=== PATIENT | male | born 1955 | race Caucasian/White ===

== ENCOUNTER → 2016-10-24 | Outpatient (CLI) | payer BC ==
[2016-10-24 13:32] LABS: BUN/Creatinine Ratio 12.2; Calcium 9.2 mg/dL (8.5-10.1); Potassium 4.5 mmol/L (3.5-5.1)
== END | disposition home or self-care (01) ==
LOC: LAB 09:36
PROVIDERS: ATTEND Internal Medicine Cardiovascular Disease
DX: I10 Essential (primary) hypertension (principal); E11.9 Type 2 diabetes mellitus without complications
CPT/HCPCS: 36415; 80048; 83036

== ENCOUNTER → 2017-04-18 | Outpatient (CLI) | payer BC ==
[2017-04-18 17:04] LABS: Basophils # (auto) 0 uL; Basophils % (auto) 0.5 % (0.0-2.0); CONDITION Y; Eosinophils # (auto) 0.1 uL; Eosinophils % (auto) 1.2 % (0.0-7.0); Hematocrit 41.4 % (41.0-53.0); Hemoglobin 13.9 g/dL (13.5-17.5); Lymphocytes # (auto) 2.1 uL; Lymphocytes % (auto) 26.5 % (10.0-50.0); Mean Corpuscular Hemoglobin 30.7 pg (28.0-32.0); Mean Corpuscular Hgb Conc. 33.7 g/dL (32.0-36.0); Mean Corpuscular Volume 91.3 fL (80.0-100.0); Mean Platelet Volume 8.9 fL (7.4-10.4); Monocytes # (auto) 0.5 uL; Neutrophils # (auto) 5.1 uL; Neutrophils % (auto) 65.8 % (37.0-80.0); Platelet Count (auto) 210 10^3/uL (140-450); Red Cell Distribution Width 14.6 % (11.6-16.0); White Blood Cell 7.8 10^3/uL (4.4-10.8)
[2017-04-18 17:11] LABS: Urine Bilirubin Negative (Negative); Urine Blood Negative /uL (Negative); Urine Color Yellow (Yellow); Urine Ketone Negative (Negative); Urine Nitrite Negative (Negative); Urine Urobilinogen Normal (Negative)
[2017-04-18 17:19] LABS: Urine Glucose 1+ mg/dL (Normal)
[2017-04-18 17:27] LABS: Temperature: 23.1 C (20.0-25.0)
[2017-04-18 17:34] LABS: Albumin 4.1 g/dL (3.4-5.0); BUN/Creatinine Ratio 15.6; Bilirubin, Direct 0.2 mg/dL (0-0.2); Bilirubin, Total 0.7 mg/dL (0.2-1.0); Calcium 9.2 mg/dL (8.5-10.1); Magnesium 2.2 mg/dL (1.6-2.6); Potassium 4.6 mmol/L (3.5-5.1); Total Protein 8.5 g/dL (6.4-8.2); Uric Acid 4.6 mg/dL (3.5-7.2)
== END | disposition home or self-care (01) ==
LOC: LAB 11:19
PROVIDERS: ATTEND Internal Medicine Cardiovascular Disease
DX: I10 Essential (primary) hypertension (principal); E78.00 Pure hypercholesterolemia, unspecified; K74.1 Hepatic sclerosis; E11.9 Type 2 diabetes mellitus without complications; R97.20 Elevated prostate specific antigen [PSA]; E03.9 Hypothyroidism, unspecified; R53.81 Other malaise; D64.9 Anemia, unspecified; E55.9 Vitamin D deficiency, unspecified; N39.0 Urinary tract infection, site not specified; M10.9 Gout, unspecified; E61.1 Iron deficiency
CPT/HCPCS: 36415; 80048; 80061; 80076; 81003; 82043; 82306; 82746; 83036; 83735; 84153; 84403; 84439; 84443; 84550; 85025

== ENCOUNTER → 2017-05-23 | Outpatient (CLI) | payer BC ==
[~2017-05-23] VITALS: Ht 30.5 cm; Wt 0.5 kg
[~2017-05-23] MED LIST: ADENOSINE 90 MG in GIVE UN-DILUTED 0 ML IV ONE; ADENOSINE 90 MG/30 ML INJ IV ONE
== END | disposition home or self-care (01) ==
LOC: Rad HDHVI 08:54
PROVIDERS: ATTEND Internal Medicine Cardiovascular Disease
DX: I10 Essential (primary) hypertension (principal); I25.2 Old myocardial infarction; E11.9 Type 2 diabetes mellitus without complications; E78.00 Pure hypercholesterolemia, unspecified; F17.210 Nicotine dependence, cigarettes, uncomplicated
CPT/HCPCS: 78452; 93005; 93306; 96374; 96375; A9500; J0153

== ENCOUNTER → 2017-06-12 | Outpatient (CLI) | payer BC ==
[2017-06-12 12:43] LABS: BUN/Creatinine Ratio 10.8; Calcium 8.8 mg/dL (8.5-10.1); Potassium 4.6 mmol/L (3.5-5.1)
== END | disposition home or self-care (01) ==
LOC: LAB 09:30
PROVIDERS: ATTEND Internal Medicine Cardiovascular Disease
DX: I10 Essential (primary) hypertension (principal)
CPT/HCPCS: 36415; 80048

== ENCOUNTER → 2017-06-25 | Outpatient (CLI) | payer BC ==
[~2017-06-25] MED LIST changes: -ADENOSINE 90 MG in GIVE UN-DILUTED 0 ML IV ONE; -ADENOSINE 90 MG/30 ML INJ IV ONE; +ASPI81TA27 PO; +ATEN-60 PO; +ATOR20TA PO; +CLOP75TA28 PO; +LISI-646 PO; +METF-370 PO; +PIO30T PO; +SITA100T7 PO
[2017-06-25 11:05] VITALS: BP 141/79
[2017-06-25 13:40] LABS: INR 1.1 (0.9-1.15); Partial Thromboplastin Time 30.4 sec (22.64-33.71)
[2017-06-25 13:44] LABS: BUN/Creatinine Ratio 14.8; Calcium 8.8 mg/dL (8.5-10.1); Potassium 3.9 mmol/L (3.5-5.1)
[2017-06-25 18:37] LABS: Basophils # (auto) 0.1 uL; Basophils % (auto) 1.1 % (0.0-2.0); Eosinophils # (auto) 0.1 uL; Eosinophils % (auto) 1.6 % (0.0-7.0); Hematocrit 40.7 % (41.0-53.0); Hemoglobin 13.7 g/dL (13.5-17.5); Lymphocytes # (auto) 1.4 uL; Mean Corpuscular Hemoglobin 31.1 pg (28.0-32.0); Mean Corpuscular Hgb Conc. 33.8 g/dL (32.0-36.0); Mean Corpuscular Volume 92.2 fL (80.0-100.0); Mean Platelet Volume 8.4 fL (6.9-10.8); Monocytes # (auto) 0.4 uL; Neutrophils % (auto) 60.3 % (37.0-80.0); Nucleated Red Blood Cells % 0.1 %; Platelet Count (auto) 144 10^3/uL (140-450); Red Cell Distribution Width 14.9 % (11.8-14.3); White Blood Cell 4.9 10^3/uL (4.4-10.8)
[2017-06-26 10:00] VITALS: BP 153/82
== END | disposition home or self-care (01) ==
LOC: Rad HDHVI 10:09
PROVIDERS: ATTEND Internal Medicine Cardiovascular Disease
DX: Z01.818 Encounter for other preprocedural examination (principal); I10 Essential (primary) hypertension; D64.9 Anemia, unspecified; R79.1 Abnormal coagulation profile
CPT/HCPCS: 36415; 71020; 80048; 85025; 85610; 85730; 93005; G0463

== ENCOUNTER 2017-06-27 11:00 | Day surgery (SDC) | payer BC ==
[~2017-06-27] VITALS: Ht 167.6 cm; Wt 105.7 kg
[2017-06-27] MEDS ORDERED: LIDOCAINE 2%HCL (LOCAL ANESTH.) INJ 20ML MDV ONE (11:16)
[2017-06-27] MEDS ORDERED: IOHEXOL 350 MG/ML 100ML IJ ONE (11:16)
[2017-06-27] MEDS ORDERED: fentaNYL CITRATE 100 MCG/2 ML VL ONE (11:51)
[2017-06-27] MEDS ORDERED: MIDAZOLAM HCL 1MG/1ML-2 ML VIAL ONE (11:51)
[2017-06-27] MEDS ORDERED: ANGIOMAX 250 MG VIAL IV ONE (11:52)
[2017-06-27] MEDS ORDERED: SODIUM CHL 0.9% 0 ML ONE (11:52)
== END 2017-06-27 15:15 | disposition home or self-care (01) ==
LOC: CATH 11:00
PROVIDERS: ATTEND Internal Medicine Cardiovascular Disease
DX: R07.9 Chest pain, unspecified (principal); I10 Essential (primary) hypertension; E78.00 Pure hypercholesterolemia, unspecified; E11.9 Type 2 diabetes mellitus without complications; I71.9 Aortic aneurysm of unspecified site, without rupture; E78.5 Hyperlipidemia, unspecified; E66.9 Obesity, unspecified; G47.30 Sleep apnea, unspecified
CPT/HCPCS: 93458; C1760; C1769; C1894; J1644; J2250; J3010; J7030; Q9967; 99152; 99153

== ENCOUNTER → 2018-04-30 | Outpatient (CLI) | payer BC ==
[~2018-04-30] MED LIST changes: -CLOP75TA28 PO
[2018-04-30 12:52] LABS: Basophils # (auto) 0 uL; Basophils % (auto) 0.5 % (0.0-2.0); Eosinophils # (auto) 0 uL; Eosinophils % (auto) 0.7 % (0.0-7.0); Hematocrit 40.7 % (41.0-53.0); Lymphocytes # (auto) 1.4 uL; Mean Corpuscular Hemoglobin 32.6 pg (28.0-32.0); Mean Corpuscular Hgb Conc. 34.3 g/dL (32.0-36.0); Mean Corpuscular Volume 95.2 fL (80.0-100.0); Monocytes # (auto) 0.4 uL; Monocytes % (auto) 6.5 % (0.0-12.0); Neutrophils # (auto) 3.9 uL; Neutrophils % (auto) 67.3 % (37.0-80.0); Nucleated Red Blood Cells % 0.2 %; Platelet Count (auto) 140 10^3/uL (140-450); Red Blood Cells 4.28 10^6/uL (4.5-5.90); Red Cell Distribution Width 14.7 % (11.8-14.3); White Blood Cell 5.7 10^3/uL (4.4-10.8)
[2018-04-30 13:04] LABS: Albumin 3.8 g/dL (3.4-5.0); BUN/Creatinine Ratio 11.8; Bilirubin, Direct 0.2 mg/dL (0-0.2); Bilirubin, Total 0.8 mg/dL (0.2-1.0); Potassium 4.2 mmol/L (3.5-5.1); Total Protein 8.1 g/dL (6.4-8.2)
== END | disposition home or self-care (01) ==
LOC: LAB 08:55
PROVIDERS: ATTEND Internal Medicine Cardiovascular Disease
DX: Z00.01 Encounter for general adult medical examination with abnormal findings (principal); C61 Malignant neoplasm of prostate; N39.0 Urinary tract infection, site not specified; E11.9 Type 2 diabetes mellitus without complications; E29.1 Testicular hypofunction; E03.9 Hypothyroidism, unspecified; E55.9 Vitamin D deficiency, unspecified; D51.9 Vitamin B12 deficiency anemia, unspecified; K74.1 Hepatic sclerosis
CPT/HCPCS: 36415; 80048; 80061; 80076; 82306; 83036; 84153; 84403; 84443; 85025

== ENCOUNTER → 2018-07-21 | Outpatient (CLI) | payer BC ==
[2018-07-21 13:43] LABS: Albumin 3.6 g/dL (3.4-5.0); BUN/Creatinine Ratio 15.4; Bilirubin, Total 0.7 mg/dL (0.2-1.0); Calcium 8.7 mg/dL (8.5-10.1); Total Protein 7.9 g/dL (6.4-8.2)
== END | disposition home or self-care (01) ==
LOC: LAB 09:16
PROVIDERS: ATTEND Internal Medicine
DX: E78.5 Hyperlipidemia, unspecified (principal); I10 Essential (primary) hypertension; E11.9 Type 2 diabetes mellitus without complications
CPT/HCPCS: 36415; 80053; 80061; 83036

== ENCOUNTER → 2018-10-24 | Outpatient (CLI) | payer BC ==
[2018-10-24 12:18] LABS: Potassium 4.2 mmol/L (3.5-5.1)
[2018-10-24 12:27] LABS: Albumin 3.6 g/dL (3.4-5.0); BUN/Creatinine Ratio 12.9; Bilirubin, Total 0.6 mg/dL (0.2-1.0); Calcium 8.8 mg/dL (8.5-10.1)
== END | disposition home or self-care (01) ==
LOC: CHF HDHVI 07:59
PROVIDERS: ATTEND Internal Medicine Cardiovascular Disease
DX: E78.5 Hyperlipidemia, unspecified (principal); I10 Essential (primary) hypertension; E11.9 Type 2 diabetes mellitus without complications
CPT/HCPCS: 36415; 80053; 80061; 83036

== ENCOUNTER → 2019-03-17 | Outpatient (CLI) | payer BC ==
[2019-03-17 12:41] LABS: Albumin 3.9 g/dL (3.4-5.0)
[2019-03-17 12:44] LABS: Bilirubin, Direct 0.2 mg/dL (0-0.2); Bilirubin, Total 0.7 mg/dL (0.2-1.0); Total Protein 7.5 g/dL (6.4-8.2)
== END | disposition home or self-care (01) ==
LOC: LAB 09:41
PROVIDERS: ATTEND Internal Medicine
DX: E78.5 Hyperlipidemia, unspecified (principal); R74.8 Abnormal levels of other serum enzymes; I10 Essential (primary) hypertension
CPT/HCPCS: 36415; 80061; 80076; 82550

== ENCOUNTER → 2019-03-27 | Outpatient (CLI) | payer BC ==
[~2019-03-27] MED LIST changes: +ASPI-404 PO; -ASPI81TA27 PO
== END | disposition home or self-care (01) ==
LOC: Rad HDHVI 08:57
PROVIDERS: ATTEND Internal Medicine
DX: M19.011 Primary osteoarthritis, right shoulder (principal); M19.012 Primary osteoarthritis, left shoulder; M16.0 Bilateral primary osteoarthritis of hip
CPT/HCPCS: 73030

== ENCOUNTER → 2019-04-16 | Outpatient (CLI) | payer BC ==
[2019-04-16 12:42] LABS: Potassium 4.2 mmol/L (3.5-5.1)
[2019-04-16 12:45] LABS: BUN/Creatinine Ratio 17.2
[2019-04-16 12:47] LABS: Basophils # (auto) 0 uL; Basophils % (auto) 0.8 % (0.0-2.0); Eosinophils # (auto) 0.1 uL; Eosinophils % (auto) 1.9 % (0.0-7.0); Hematocrit 38.2 % (41.0-53.0); Hemoglobin 12.9 g/dL (13.5-17.5); Lymphocytes # (auto) 1.4 uL; Lymphocytes % (auto) 27.3 % (10.0-50.0); Mean Corpuscular Hgb Conc. 33.8 g/dL (32.0-36.0); Mean Corpuscular Volume 94.6 fL (80.0-100.0); Monocytes # (auto) 0.4 uL; Monocytes % (auto) 6.9 % (0.0-12.0); Neutrophils # (auto) 3.2 uL; Neutrophils % (auto) 63.1 % (37.0-80.0); Nucleated Red Blood Cells % 0.1 %; Platelet Count (auto) 130 10^3/uL (140-450); Red Blood Cells 4.03 10^6/uL (4.5-5.90); Red Cell Distribution Width 15.2 % (11.8-14.3); White Blood Cell 5.1 10^3/uL (4.4-10.8)
== END | disposition home or self-care (01) ==
LOC: LAB 08:11
PROVIDERS: ATTEND Internal Medicine
DX: Z00.00 Encounter for general adult medical examination without abnormal findings (principal); R82.79 Other abnormal findings on microbiological examination of urine; E78.00 Pure hypercholesterolemia, unspecified; D51.9 Vitamin B12 deficiency anemia, unspecified; R70.0 Elevated erythrocyte sedimentation rate; C61 Malignant neoplasm of prostate; K90.9 Intestinal malabsorption, unspecified; I10 Essential (primary) hypertension
CPT/HCPCS: 36415; 80048; 80061; 82306; 82607; 83036; 84154; 84443; 85025; 85652

== ENCOUNTER → 2019-08-10 | Outpatient (CLI) | payer BC ==
[2019-08-10 11:59] LABS: Potassium 4.3 mmol/L (3.5-5.1)
[2019-08-10 12:16] LABS: Albumin 3.7 g/dL (3.4-5.0); BUN/Creatinine Ratio 15.7; Bilirubin, Total 0.5 mg/dL (0.2-1.0); Calcium 8.8 mg/dL (8.5-10.1); Total Protein 7.7 g/dL (6.4-8.2)
== END | disposition home or self-care (01) ==
LOC: LAB 08:16
PROVIDERS: ATTEND Internal Medicine
DX: E78.5 Hyperlipidemia, unspecified (principal); E11.9 Type 2 diabetes mellitus without complications; I10 Essential (primary) hypertension
CPT/HCPCS: 36415; 80053; 80061; 83036

== ENCOUNTER 2020-08-13 22:29 | Emergency (ER) | payer BC, MEDICAID ==
[~2020-08-13] VITALS: Ht 167.6 cm; Wt 117.9 kg
[~2020-08-13 22:29] MED LIST changes: -ASPI-404 PO; +ASPI-543 PO
[2020-08-13 23:05] VITALS: BP 152/65
[2020-08-14 00:18] LABS: Basophils # (auto) 0 10 ^3/uL (0-0.2); Basophils % (auto) 0.7 % (0.0-2.0); Eosinophils # (auto) 0 10 ^3/uL (0-0.8); Eosinophils % (auto) 0.3 % (0.0-7.0); Hematocrit 40.7 % (41.0-53.0); Hemoglobin 13.7 g/dL (13.5-17.5); Lymphocytes # (auto) 0.8 10 ^3/uL (0.4-5.4); Lymphocytes % (auto) 15.3 % (10.0-50.0); Mean Corpuscular Hemoglobin 31.6 pg (28.0-32.0); Mean Corpuscular Hgb Conc. 33.7 g/dL (32.0-36.0); Mean Corpuscular Volume 93.6 fL (80.0-100.0); Monocytes # (auto) 0.3 10 ^3/uL (0-1.3); Monocytes % (auto) 5.8 % (0.0-12.0); Neutrophils # (auto) 3.9 10 ^3/uL (1.6-8.6); Neutrophils % (auto) 77.9 % (37.0-80.0); Nucleated Red Blood Cells % 0.2 %; Platelet Count (auto) 120 10^3/uL (140-450); Red Blood Cells 4.35 10^6/uL (4.5-5.90); Red Cell Distribution Width 15.2 % (11.8-14.3); White Blood Cell 5.1 10^3/uL (4.4-10.8)
[2020-08-14 00:34] LABS: Albumin 3.5 g/dL (3.4-5.0); Calcium 8.4 mg/dL (8.5-10.1); Potassium 4.3 mmol/L (3.5-5.1)
[2020-08-14 00:35] LABS: INR 1.12 (0.9-1.15)
[2020-08-14 00:39] LABS: Bilirubin, Total 0.7 mg/dL (0.2-1.0)
[2020-08-14 02:33] LABS: CRP High Sensitivity 3.47 mg/dL (< 0.3)
== END 2020-08-14 14:40 | disposition home or self-care (01) ==
LOC: ER 22:30
DX: U07.1 COVID-19 (principal); R06.00 Dyspnea, unspecified; R53.83 Other fatigue; E11.9 Type 2 diabetes mellitus without complications; I10 Essential (primary) hypertension
CPT/HCPCS: 36415; 36600; 71046; 80053; 82728; 82805; 83605; 83615; 83735; 83880; 84484; 85025; 85379; 85610; 86141; 87426; 93005

== ENCOUNTER 2020-08-15 09:43 | Inpatient (IN) | payer MEDICAID ==
[~2020-08-15] VITALS: Ht 167.6 cm; Wt 122.5 kg
[2020-08-15 14:01] LABS: Basophils # (auto) 0 10 ^3/uL (0-0.2); Basophils % (auto) 0.2 % (0.0-2.0); Eosinophils # (auto) 0 10 ^3/uL (0-0.8); Hematocrit 39.7 % (41.0-53.0); Hemoglobin 13.2 g/dL (13.5-17.5); Lymphocytes # (auto) 0.6 10 ^3/uL (0.4-5.4); Lymphocytes % (auto) 12.1 % (10.0-50.0); Mean Corpuscular Hemoglobin 31.2 pg (28.0-32.0); Mean Corpuscular Hgb Conc. 33.3 g/dL (32.0-36.0); Mean Corpuscular Volume 93.7 fL (80.0-100.0); Monocytes # (auto) 0.2 10 ^3/uL (0-1.3); Neutrophils # (auto) 4.3 10 ^3/uL (1.6-8.6); Neutrophils % (auto) 83.7 % (37.0-80.0); Nucleated Red Blood Cells % 0.2 %; Red Blood Cells 4.23 10^6/uL (4.5-5.90); Red Cell Distribution Width 14.9 % (11.8-14.3); White Blood Cell 5.1 10^3/uL (4.4-10.8)
[2020-08-15 14:23] LABS: Calcium 7.7 mg/dL (8.5-10.1); Potassium 4.4 mmol/L (3.5-5.1)
[2020-08-15 14:31] LABS: BUN/Creatinine Ratio 16.7; Bilirubin, Total 0.9 mg/dL (0.2-1.0); CRP High Sensitivity 5.55 mg/dL (< 0.3); Total Protein 7.1 g/dL (6.4-8.2)
[2020-08-15 14:42] LABS: Platelet Count (auto) 95 10^3/uL (140-450)
[2020-08-15] MEDS ORDERED: ACETAMINOPHEN 500 MG TAB PO PRN (17:45)
[2020-08-15] MEDS ORDERED: NITROGLYCERIN 0.4 MG SL TAB SL PRN (17:45)
[2020-08-15] MEDS ORDERED: REMDESIVIR PER PHARMACY IV SCH (17:45)
[2020-08-15] MEDS ORDERED: DEXTROSE (50%) 50ML SYRG IV PRN (17:45)
[2020-08-15] MEDS ORDERED: MORPHINE SULF INJ 2 MG/ML SYRINGE 1ML IV PRN ×2 (17:45)
[2020-08-15] MEDS ORDERED: HYDROcodone-ACET 5/325MG TAB PO PRN (17:45)
[2020-08-15] MEDS: cefTRIAXone 1GM/50ML D5W 50 ML IV SCH (18:09)
[2020-08-15] MEDS: AZITHROMYCIN 500MG/D5WorNS 250ml IV SCH (18:27)
[2020-08-15] MEDS ORDERED: REMDESIVIR 200 MG in NS 210ml LOADING DOSE ADULT IV ONE (19:00)
--- NOTE | 2020-08-15 21:40 | NUR ---
Telemetry admit from ER TERRIJESSICA admitted to Telemetry unit after SBAR received. Patient oriented to CHUCK BROWN RN primary RN, unit, room, bed, and unit policies regarding patient care and visiting hours. Patient now on continuous telemetry monitoring, tele box # [id number] and telemetry reading on arrival to unit is . Patient placed on bedside oxygen, weighed by bedscale and encouraged to call if they need something. All questions and concerns addressed, patient verbalized understanding. Note:
[2020-08-15 22:00] VITALS: BP 133/66
[2020-08-15] MEDS: ENOXAPARIN SOD 40 MG/0.4 ML SYRINGE SC SCH (22:59)
[2020-08-15] MEDS: InsuLIN REG 1unit/0.01ml Soln (100units/ml) SC SCH (23:00)
[2020-08-15 23:30] VITALS: BP 138/78
[2020-08-15] MEDS: ACCU-CHEK COMFORT CURVE STRIP VI SCH (23:50)
[2020-08-16] VITALS (10 sets, daily range): BP systolic 104–138; BP diastolic 51–78
--- NOTE | 2020-08-16 01:30 | NUR ---
STARTED REMDESEVIR IV BEGINNING VITAL SIGNS BP 123/873, HR 77, RR 22, 96% 3L NC, TEMP 987.87. INFUSION RATE IS 25-0 ML/HR. WILL CONTINUE TO MONITOR.
--- NOTE | 2020-08-16 01:45 | NUR ---
WOUND PICTURES TAKEN, RAPID INFLUENZA A AND B SWAB COLLECTED. CONSENT SIGNED FOR BLOOD TRANSFUSION. GIVEN EDUCATION. PATIENT AGREED AND VERBALIZED UNDERSTANDING.
--- NOTE | 2020-08-16 02:00 | NUR ---
ONGOING REMDESEVIR INFUSION RECHECKED VITAL SIGNS BP 104/54, HR 88, RR 21, TEMP 98.7. SLOWER THE RATE OF REMDESIVIR TO 125 ML/HR. WILL CONTINUE TO MONITOR PATIENT.
--- NOTE | 2020-08-16 02:26 | NUR ---
RECHECKED VITAL SIGNS BP 108/51, HR 87, O2 SAT 95 % TEMP 98.7
--- NOTE | 2020-08-16 03:23 | NUR ---
FINISHED REMDESIVIR INFUSION VITAL SIGNS TEMP 99.4, HR 94, O2 SAT 96, BP 138/78. PATIENT TOLERATED WELL.
[2020-08-16] MEDS ORDERED: INFLUENZA QUAD 2020-2021 0.5 ML SYRG IM ONE (06:00)
[2020-08-16] MEDS ORDERED: PNEUMOCOCCAL VACC POLYS 25 MCG/0.5 ML VIAL IM ONE (06:00)
[2020-08-16] MEDS: ACCU-CHEK COMFORT CURVE STRIP VI SCH ×4 (06:34→22:56)
[2020-08-16] MEDS: InsuLIN REG 1unit/0.01ml Soln (100units/ml) SC SCH ×4 (06:35→22:56)
--- NOTE | 2020-08-16 07:15 | NUR ---
Opening Shift Note Report received and assumed care of patient alert and oriented. No S/S of distress/SOB or pain. Patient on 3L NC. Instructed on POC, call light within reach, patient reminded instructed to call for assistance, verbalized understanding. Will continue to monitor for changes Q1hr and PRN.
[2020-08-16 09:16] LABS: Basophils # (auto) 0 10 ^3/uL (0-0.2); Basophils % (auto) 0.2 % (0.0-2.0); Eosinophils # (auto) 0 10 ^3/uL (0-0.8); Hemoglobin 12.9 g/dL (13.5-17.5); Lymphocytes % (auto) 28.2 % (10.0-50.0); Mean Corpuscular Hemoglobin 30.5 pg (28.0-32.0); Mean Corpuscular Hgb Conc. 33.1 g/dL (32.0-36.0); Mean Corpuscular Volume 92.2 fL (80.0-100.0); Monocytes # (auto) 0.2 10 ^3/uL (0-1.3); Monocytes % (auto) 4.8 % (0.0-12.0); Neutrophils # (auto) 2.4 10 ^3/uL (1.6-8.6); Neutrophils % (auto) 66.8 % (37.0-80.0); Platelet Count (auto) 96 10^3/uL (140-450); Red Blood Cells 4.23 10^6/uL (4.5-5.90); White Blood Cell 3.6 10^3/uL (4.4-10.8)
--- NOTE | 2020-08-16 09:30 | NUR ---
Incentive spirometer Patient provided with and educated on incentive spirometer use. Patient was able to return demonstration.
[2020-08-16 09:32] LABS: INR 1.13 (0.9-1.15); Partial Thromboplastin Time 36.2 sec (23.0-31.2)
[2020-08-16 09:36] LABS: Albumin 3.1 g/dL (3.4-5.0); Calcium 7.9 mg/dL (8.5-10.1)
[2020-08-16 09:53] LABS: BUN/Creatinine Ratio 19.2; Bilirubin, Total 0.7 mg/dL (0.2-1.0); Potassium 3.7 mmol/L (3.5-5.1)
--- NOTE | 2020-08-16 10:35 | NUR ---
RUBY SOFTWARE DEVELOPER at bedside RUBY SOFTWARE DEVELOPER Mehreen updated on POC. New orders received will carry out and continue to monitor.
[2020-08-16] MEDS ORDERED: guaiFENesin-DM 100/10mg/5ml SYR PO PRN (10:45)
[2020-08-16] MEDS: cefTRIAXone 1GM/50ML D5W 50 ML IV SCH (10:47)
[2020-08-16] MEDS: ATENOLOL 25 MG TAB PO SCH (10:48)
[2020-08-16] MEDS: ZINC SULFATE 220mg CAP or TAB PO SCH (10:48)
[2020-08-16] MEDS: DexAMETHasone SOD PHOS 10MG/1ML VIAL INJ IV SCH (10:48)
[2020-08-16] MEDS: ATORVASTATIN 20 MG TAB PO SCH (10:48)
[2020-08-16] MEDS: ASCORBIC ACID 1,000 MG TAB PO SCH (10:49)
[2020-08-16] MEDS: ENOXAPARIN SOD 40 MG/0.4 ML SYRINGE SC SCH ×2 (10:49→22:57)
[2020-08-16] MEDS: CHOLECALCIFEROL (VITD3) 2,000 UNIT CAP PO SCH (10:49)
--- NOTE | 2020-08-16 11:00 | NUR ---
Home medications Patient family dropped of patients home medications in pill box. Unable to have patient sign POM form due to isolation precautions to send to pharmacy. Medications placed in west medication room at this time per charge nurse Mercedes. Patient updated and verbalized understanding.
[2020-08-16] MEDS: AZITHROMYCIN 500MG/D5WorNS 250ml IV SCH (12:45)
[2020-08-16] MEDS ORDERED: METO25TA5 PO (13:26)
[2020-08-16] MEDS ORDERED: SITA100T7 PO (13:26)
[2020-08-16] MEDS ORDERED: FERR27TA2 PO (13:26)
[2020-08-16] MEDS ORDERED: MULT-228 PO (13:26)
[2020-08-16] MEDS ORDERED: FURO20TA3 PO (13:26)
[2020-08-16] MEDS ORDERED: LOSA25TA38 PO (13:26)
[2020-08-16] MEDS ORDERED: PIO30T PO (13:26)
[2020-08-16] MEDS ORDERED: ASPI-231 PO (13:26)
[2020-08-16] MEDS ORDERED: ZINC220C8 PO (13:26)
--- NOTE | 2020-08-16 13:29 | NUR ---
CALLED BLOOD BANK THIS RN CALLED BLOOD BANK, [facility] STATES CONVALESCENT PLASMA IS NOT HERE YET.
[2020-08-16] MEDS: BUDESONIDE (INHALATION) 180 MCG IH IN SCH ×2 (13:39→20:52)
[2020-08-16] MEDS: ALBUTEROL SULF HFA 90MCG INH 200DOSE IN PRN ×2 (13:39→20:52)
--- NOTE | 2020-08-16 17:25 | NUR ---
Remdesivir started, no signs/symptoms of distress noted at this time. Started at 125 mls/hr, starting blood pressure was 105/63. Patient instructed to call if symptoms appear, call light within reach.
--- NOTE | 2020-08-16 17:30 | NUR ---
MRSA swab collected and sent to lab
--- NOTE | 2020-08-16 19:00 | NUR ---
Opening Shift Note Assumed care of patient, awake and alert. No S/S of distress/SOB or pain. On 3L nasal cannula O2 sat of 987%. Patient refused to stay in bed. He preffered to stay and sleep in the chair. Encouraged to use Incentive spirometry. Insructed on POC and to call for assist PRN, Patient agreed and verbalized understanding. will continue to monitor for changes Q1hr and PRN.
[2020-08-16] MEDS: REMDESIVIR 100 MG in SODIUM CHL 0.9% 250 ML IV SCH (19:05)
--- NOTE | 2020-08-16 19:15 | NUR ---
Opening Shift Note Assumed care of patient, awake and alertx4. Patient sitting on the chair. No complains. No S/S of distress/SOB or pain. Instructed on POC and to call for assist PRN, will continue to monitor for changes Q1hr and PRN. Addendum: 08/17/20 at 0109 by CHUCK BROWN RN RN duplicate notes
--- NOTE | 2020-08-16 19:22 | NUR ---
Closing note Report given to steward/stewardess night RN. Remdesivir still infusing, no signs of distress noted.
--- NOTE | 2020-08-16 19:38 | NUR ---
Sent urine sample to lab via tube.
[2020-08-16 20:08] LABS: Urine Bacteria NONE SEEN /hpf (None Seen); Urine Blood 2+ /uL (Negative); Urine WBC <1 /hpf (0 - 3)
[2020-08-17] VITALS (8 sets, daily range): BP systolic 101–134; BP diastolic 55–81
--- NOTE | 2020-08-17 00:45 | NUR ---
START OF CONVALESCENT BLOOD TRANSFUSION. VITAL SIGNS WITHIN NORMAL LIMITS. PLS SEE BLOOD TRANSFUSION DOCUMENTATION. TWO NURSES VERIFICATION MADE WITH DONNA RUIZ RN. WILL CONTINUE TO MONITOR.
--- NOTE | 2020-08-17 02:15 | NUR ---
finished convalescent plasma transfusion, Vitals within normal limit. Patient tolerated well.
[2020-08-17] MEDS: ACCU-CHEK COMFORT CURVE STRIP VI SCH ×3 (06:35→17:16)
[2020-08-17] MEDS: InsuLIN REG 1unit/0.01ml Soln (100units/ml) SC SCH ×3 (06:36→17:36)
[2020-08-17 06:55] LABS: Calcium 8.2 mg/dL (8.5-10.1)
[2020-08-17 07:04] LABS: Albumin 2.9 g/dL (3.4-5.0); BUN/Creatinine Ratio 23.4; Bilirubin, Total 0.6 mg/dL (0.2-1.0)
[2020-08-17] MEDS: cefTRIAXone 1GM/50ML D5W 50 ML IV SCH (09:30)
[2020-08-17] MEDS: ENOXAPARIN SOD 40 MG/0.4 ML SYRINGE SC SCH ×2 (11:19→22:05)
[2020-08-17] MEDS: DexAMETHasone SOD PHOS 10MG/1ML VIAL INJ IV SCH (11:19)
[2020-08-17] MEDS: AZITHROMYCIN 500MG/D5WorNS 250ml IV SCH (11:19)
[2020-08-17] MEDS: ASCORBIC ACID 1,000 MG TAB PO SCH (11:20)
[2020-08-17] MEDS: CHOLECALCIFEROL (VITD3) 2,000 UNIT CAP PO SCH (11:20)
[2020-08-17] MEDS: ATORVASTATIN 20 MG TAB PO SCH (11:20)
[2020-08-17] MEDS: ZINC SULFATE 220mg CAP or TAB PO SCH (11:21)
[2020-08-17] MEDS: BUDESONIDE (INHALATION) 180 MCG IH IN SCH ×2 (11:26→23:27)
[2020-08-17] MEDS: ATENOLOL 25 MG TAB PO SCH (11:50)
[2020-08-17] MEDS: REMDESIVIR 100 MG in SODIUM CHL 0.9% 250 ML IV SCH (16:57)
--- NOTE | 2020-08-17 16:57 | NUR ---
Remdesivir infusion initiated at this time Remdesivir infusion initiated at this time after proper administration checks were performed. Patient explained possible side effects and s/s to look out for, patient verbalized understanding and agrees to get medication infused. Baseline VS: HR-68 BP- 116/57 RR-20
--- NOTE | 2020-08-17 18:10 | NUR ---
Remdesivir infusion completed Remdesivir infusion completed at this time. Line flushed with 30ml of saline as instructed on infusion protocol. Patient tolerated infusion without any complaints of nausea, vomiting, or decrease in BP. 15min VS: HR- 71 BP- 129/67 RR-20 Post-infusion VS: HR- 70 BP-120/63 RR-20
--- NOTE | 2020-08-17 19:35 | NUR ---
Opening Shift Note Assumed care of patient, awake and alert. No S/S of distress/SOB or pain. Updated on POC and to call for assist PRN, patient verbalized understanding. Bed in lowest and locked position, call light within reach, will continue to monitor for changes Q1hr and PRN.
[2020-08-17] MEDS ORDERED: DEXTROSE (50%) 50ML SYRG IV PRN (19:45)
[2020-08-17] MEDS: INSULIN LANTUS (GLARGINE) 1 /0.01ml (100units/ml) SC SCH (23:14)
[2020-08-17] MEDS: ALBUTEROL SULF HFA 90MCG INH 200DOSE IN PRN (23:27)
[2020-08-18] MEDS: ACCU-CHEK COMFORT CURVE STRIP VI SCH ×4 (01:00→17:49)
[2020-08-18] MEDS: InsuLIN REG 1unit/0.01ml Soln (100units/ml) SC SCH ×4 (01:00→17:50)
[2020-08-18 06:00] VITALS: BP 131/83
[2020-08-18 09:00] VITALS: BP 152/70
[2020-08-18] MEDS: cefTRIAXone 1GM/50ML D5W 50 ML IV SCH (10:04)
[2020-08-18] MEDS: DexAMETHasone SOD PHOS 10MG/1ML VIAL INJ IV SCH (10:05)
[2020-08-18] MEDS: ASCORBIC ACID 1,000 MG TAB PO SCH (10:05)
[2020-08-18] MEDS: ZINC SULFATE 220mg CAP or TAB PO SCH (10:05)
[2020-08-18] MEDS: ATENOLOL 25 MG TAB PO SCH (10:05)
[2020-08-18] MEDS: ATORVASTATIN 20 MG TAB PO SCH (10:06)
[2020-08-18] MEDS: CHOLECALCIFEROL (VITD3) 2,000 UNIT CAP PO SCH (10:06)
[2020-08-18] MEDS: ENOXAPARIN SOD 40 MG/0.4 ML SYRINGE SC SCH ×2 (10:06→22:59)
[2020-08-18] MEDS: AZITHROMYCIN 500MG/D5WorNS 250ml IV SCH (11:29)
[2020-08-18] MEDS: BUDESONIDE (INHALATION) 180 MCG IH IN SCH ×2 (12:35→19:47)
[2020-08-18 13:00] VITALS: BP 126/75
--- NOTE | 2020-08-18 13:05 | NUR ---
MD rounding MD rounding at nurses station. Update provided regarding patient's condition at this time. No new orders received at this time.
[2020-08-18] MEDS: REMDESIVIR 100 MG in SODIUM CHL 0.9% 250 ML IV SCH (17:20)
[2020-08-18] MEDS ORDERED: REMDESIVIR PER PHARMACY IV SCH (18:45)
--- NOTE | 2020-08-18 20:30 | NUR ---
Assumed care of patient report received. patient alert and oriented x 4, follows direction. patient on oxygen at 2L via NC, no s/s of distress or SOB. patient ambulates with steady gait. will continue care.
[2020-08-18 22:00] VITALS: BP 152/72
[2020-08-18] MEDS: INSULIN LANTUS (GLARGINE) 1 /0.01ml (100units/ml) SC SCH (23:18)
--- NOTE | 2020-08-19 00:30 | NUR ---
Rounds patient sleeping on left side, oxygen saturation 89-90%, patient had Oxymizer off and on head, patient woke to name and light stimuli. placed Oxymizer on patient, instructed to keep on, patient verbalized understanding. oxygen saturation up to 92-93%. will continue to monitor. Addendum: 08/19/20 at 0301 by Patria Claros RN RN wrong patient
[2020-08-19] MEDS: ACCU-CHEK COMFORT CURVE STRIP VI SCH ×4 (00:33→18:07)
[2020-08-19] MEDS: InsuLIN REG 1unit/0.01ml Soln (100units/ml) SC SCH ×4 (00:50→18:11)
--- NOTE | 2020-08-19 01:30 | NUR ---
Rounds patient sleeping on left side with even and unlabored respiration, oxygen on, continuous pulse ox on with oxygen saturation at 96-97%. will continue to monitor. Addendum: 08/19/20 at 0303 by Patria Claros RN RN wrong patient
--- NOTE | 2020-08-19 01:30 | NUR ---
Rounds patient sleeping on left side with even and unlabored respiration, oxygen on, continuous pulse ox on with oxygen saturation at 96-97%. will continue to monitor. Addendum: 08/19/20 at 0302 by Patria Claros RN RN wrong patient
--- NOTE | 2020-08-19 03:00 | NUR ---
Closing Note patient resting with oxygen on, even and unlabored respirations. no s/s of distress or SOB.
--- NOTE | 2020-08-19 03:30 | NUR ---
Endorsed care to Thalia CAZARES.
[2020-08-19] MEDS: ALBUTEROL SULF HFA 90MCG INH 200DOSE IN PRN ×3 (03:41→22:41)
[2020-08-19 05:00] VITALS: BP 127/71
[2020-08-19] MEDS: INSULIN LANTUS (GLARGINE) 1 /0.01ml (100units/ml) SC SCH ×2 (06:16→23:06)
[2020-08-19 07:33] LABS: Albumin 2.9 g/dL (3.4-5.0); Calcium 8.4 mg/dL (8.5-10.1); Potassium 3.9 mmol/L (3.5-5.1)
[2020-08-19 07:40] LABS: BUN/Creatinine Ratio 23.8; Bilirubin, Total 0.5 mg/dL (0.2-1.0); Total Protein 6.9 g/dL (6.4-8.2)
[2020-08-19 09:00] VITALS: BP 140/75
[2020-08-19] MEDS: ATORVASTATIN 20 MG TAB PO SCH (09:18)
[2020-08-19] MEDS: ZINC SULFATE 220mg CAP or TAB PO SCH (09:18)
[2020-08-19] MEDS: DexAMETHasone SOD PHOS 10MG/1ML VIAL INJ IV SCH (09:18)
[2020-08-19] MEDS: ATENOLOL 25 MG TAB PO SCH (09:20)
[2020-08-19] MEDS: ASCORBIC ACID 1,000 MG TAB PO SCH (09:20)
[2020-08-19] MEDS: CHOLECALCIFEROL (VITD3) 2,000 UNIT CAP PO SCH (09:20)
[2020-08-19] MEDS: ENOXAPARIN SOD 40 MG/0.4 ML SYRINGE SC SCH ×2 (09:20→23:06)
[2020-08-19] MEDS: cefTRIAXone 1GM/50ML D5W 50 ML IV SCH (09:21)
[2020-08-19] MEDS: BUDESONIDE (INHALATION) 180 MCG IH IN SCH ×2 (10:40→22:41)
--- NOTE | 2020-08-19 12:56 | NUR ---
Nutrition Assessment Notes Please refer to link for full assessment notes. Est Energy needs: 1526-8424 kcals (12-15 kcal/kgBW) Est Protein needs: 98-123 gms/day (0.8-1.0 gm/kgBW) Will continue to monitor and reassess prn. Addendum: 08/19/20 at [address] Amended: Links added.
--- NOTE | 2020-08-19 14:00 | NUR ---
Assessment Patient is a 64-year-old male who is alert and oriented. Prior to admission patient lived home with his and functioned independently. Prior to admission patient could care for his own ADL's. Per patient he will return home to his prior living arrangements post discharge and his will transport him home at any time on discharge day. Advised patient there is a social service consult for home oxygen at 2l/min. Informed patient clinical information will be faxed to [facility] [place] and portable oxygen to be deliver to the front lobby and concentrate oxygen to patient home. Informed patient he has the right to participate in all discharge planning. Patient does not have an advance directive. Patient has been provided with an advanced directive. Patient verbalized understanding and agrees to discharge plan. Per Thalia with [facility] order has been received an oxygen to be deliver to the front lobby by 16:00 and concentrate oxygen to patient home. Informed SAGE Vásquez. Addendum: 08/19/20 at 1606 by MARLENE MAYERS Amended: Links added.
[2020-08-19] MEDS ORDERED: FUROSEMIDE 20 MG/2 ML VIAL IV ONE ×2 (15:15→17:00)
[2020-08-19] MEDS: REMDESIVIR 100 MG in SODIUM CHL 0.9% 250 ML IV SCH (16:21)
[2020-08-19 17:00] VITALS: BP 156/73
[2020-08-19 22:00] VITALS: BP 142/75
[2020-08-20] MEDS: InsuLIN REG 1unit/0.01ml Soln (100units/ml) SC SCH ×4 (00:58→18:00)
[2020-08-20 05:00] VITALS: BP 145/71
[2020-08-20] MEDS: ACCU-CHEK COMFORT CURVE STRIP VI SCH ×4 (06:00→17:14)
--- NOTE | 2020-08-20 06:00 | NUR ---
PT sitting in chair throughout night, ambulatory with 2L NC. O2 saturation measured while walking with Oxygen on, saturation of 93%. No other distress noted. Pt wants to go home.
[2020-08-20] MEDS: INSULIN LANTUS (GLARGINE) 1 /0.01ml (100units/ml) SC SCH ×2 (06:01→21:26)
--- NOTE | 2020-08-20 07:40 | NUR ---
Opening Shift Note Assumed care of patient, awake, alert and sitting in the chair. Patient stated that he isn't able to lie down in the bed and he's more comfortable sitting up. Respirations are even and non labored on 2L NC. Bed is in the lowest and locked position with side rails up x 2 and call light within reach. No S/S of distress/SOB or pain. Instructed on POC and to call for assist PRN, will continue to monitor for changes Q1hr and PRN.
[2020-08-20] MEDS: ENOXAPARIN SOD 40 MG/0.4 ML SYRINGE SC SCH ×2 (10:00→21:24)
[2020-08-20 11:00] VITALS: BP 136/69
[2020-08-20] MEDS: DexAMETHasone SOD PHOS 10MG/1ML VIAL INJ IV SCH (11:08)
[2020-08-20] MEDS: ZINC SULFATE 220mg CAP or TAB PO SCH (11:08)
[2020-08-20] MEDS: FUROSEMIDE 20 MG/2 ML VIAL IV SCH (11:08)
[2020-08-20] MEDS: cefTRIAXone 1GM/50ML D5W 50 ML IV SCH (11:08)
[2020-08-20] MEDS: ASCORBIC ACID 1,000 MG TAB PO SCH (11:09)
[2020-08-20] MEDS: ATORVASTATIN 20 MG TAB PO SCH (11:09)
[2020-08-20] MEDS: ATENOLOL 25 MG TAB PO SCH (11:09)
[2020-08-20] MEDS: CHOLECALCIFEROL (VITD3) 2,000 UNIT CAP PO SCH (11:09)
[2020-08-20 14:48] VITALS: BP 133/79
[2020-08-20 17:45] VITALS: BP 140/78
[2020-08-20 20:00] VITALS: BP 141/77
[2020-08-20] MEDS: BUDESONIDE (INHALATION) 180 MCG IH IN SCH (22:00)
[2020-08-20] MEDS: ALBUTEROL SULF HFA 90MCG INH 200DOSE IN PRN (23:24)
[2020-08-21] MEDS: ACCU-CHEK COMFORT CURVE STRIP VI SCH ×4 (00:03→18:00)
[2020-08-21] MEDS: InsuLIN REG 1unit/0.01ml Soln (100units/ml) SC SCH ×4 (00:22→18:40)
[2020-08-21] MEDS: INSULIN LANTUS (GLARGINE) 1 /0.01ml (100units/ml) SC SCH (05:59)
[2020-08-21] MEDS: ALBUTEROL SULF HFA 90MCG INH 200DOSE IN PRN (07:25)
[2020-08-21] MEDS: BUDESONIDE (INHALATION) 180 MCG IH IN SCH (07:25)
[2020-08-21 08:30] VITALS: BP 138/76
[2020-08-21] MEDS: CHOLECALCIFEROL (VITD3) 2,000 UNIT CAP PO SCH (10:00)
[2020-08-21] MEDS: FUROSEMIDE 20 MG/2 ML VIAL IV SCH (10:00)
[2020-08-21] MEDS: ZINC SULFATE 220mg CAP or TAB PO SCH (10:00)
[2020-08-21] MEDS: ASCORBIC ACID 1,000 MG TAB PO SCH (10:00)
[2020-08-21] MEDS: ATENOLOL 25 MG TAB PO SCH (10:00)
[2020-08-21] MEDS: ATORVASTATIN 20 MG TAB PO SCH (10:00)
[2020-08-21] MEDS: DexAMETHasone SOD PHOS 10MG/1ML VIAL INJ IV SCH (10:00)
[2020-08-21] MEDS: ENOXAPARIN SOD 40 MG/0.4 ML SYRINGE SC SCH (10:00)
[2020-08-21] MEDS: cefTRIAXone 1GM/50ML D5W 50 ML IV SCH (10:16)
[2020-08-21] MEDS ORDERED: METH4PAK PO (12:50)
[2020-08-21] MEDS ORDERED: DOXY-111 PO (12:50)
[2020-08-21 14:00] VITALS: BP 126/81
[2020-08-21 17:36] VITALS: BP 145/76
[2020-08-21 17:43] VITALS: BP 145/76
--- NOTE | 2020-08-21 19:20 | NUR ---
Discharge instructions given as ordered. Encourage to follow up with PMD as instructed. All questions and concerns addressed. Patient verbalized understanding. Home medications held in Pharmacy returned to patient. IV removed with catheter intact, pressure dressing applied. Telemetry unit returned to ICU. Patient taken to vehicle via wheelchair with all personal belongings, accompanied by staff. No distress noted at time of departure.
== END 2020-08-21 19:20 | disposition home or self-care (01) | DRG 137 ==
LOC: ER 09:43 → OVERFLOW 17:38 → TELE-WESTW 21:40
PROVIDERS: ADMIT Nurse Practitioner Acute Care; ATTEND Internal Medicine Nephrology
PROC: XW033E5 Introduction of Remdesivir Anti-infective into Peripheral Vein, Percutaneous Approach, New Technology Group 5 (ICD-10-PCS; principal; 2020-08-15)
PROC: XW13325 Transfusion of Convalescent Plasma (Nonautologous) into Peripheral Vein, Percutaneous Approach, New Technology Group 5 (ICD-10-PCS; 2020-08-17)
DX: U07.1 COVID-19 (principal); J12.89 Other viral pneumonia; J96.01 Acute respiratory failure with hypoxia; I10 Essential (primary) hypertension; E78.5 Hyperlipidemia, unspecified; I35.0 Nonrheumatic aortic (valve) stenosis; E66.9 Obesity, unspecified; E87.1 Hypo-osmolality and hyponatremia; E88.09 Other disorders of plasma-protein metabolism, not elsewhere classified; D68.59 Other primary thrombophilia; I71.9 Aortic aneurysm of unspecified site, without rupture; Z68.41 Body mass index [BMI] 40.0-44.9, adult; E11.65 Type 2 diabetes mellitus with hyperglycemia; Z79.82 Long term (current) use of aspirin; Z79.84 Long term (current) use of oral hypoglycemic drugs
CPT/HCPCS: 36415; 36600; 71045; 80053; 81001; 82728; 82805; 82962; 83036; 83615; 83735; 84484; 85025; 85379; 85610; 85730; 86141; 86850; 86900; 86901; 87040; 87081; 87804; 94640; G0378; J0696; J1100; J1815

== ENCOUNTER 2020-12-27 09:18 | Inpatient (IN) | payer OTHER, MEDICAID ==
[~2020-12-27] VITALS: Ht 170.2 cm; Wt 118.0 kg
[~2020-12-27 09:18] MED LIST changes: +ASPI-231 PO; -ASPI-543 PO; +DOXY-111 PO; +FERR27TA2 PO; +FURO20TA3 PO; -LISI-646 PO; +LOSA25TA38 PO; -METF-370 PO; +METH4PAK PO; +METO25TA5 PO; +MULT-228 PO; +ZINC220C8 PO
[2020-12-27] MEDS ORDERED: FUROSEMIDE 40 MG/4 ML VIAL IV ONE (09:30)
[2020-12-27 10:52] LABS: Basophils # (auto) 0 10 ^3/uL (0-0.2); Basophils % (auto) 0.6 % (0.0-2.0); Eosinophils # (auto) 0.1 10 ^3/uL (0-0.8); Eosinophils % (auto) 0.9 % (0.0-7.0); Hematocrit 34.3 % (41.0-53.0); Hemoglobin 11.4 g/dL (13.5-17.5); Lymphocytes # (auto) 1.3 10 ^3/uL (0.4-5.4); Lymphocytes % (auto) 17.5 % (10.0-50.0); Mean Corpuscular Hemoglobin 30.1 pg (28.0-32.0); Mean Corpuscular Hgb Conc. 33.2 g/dL (32.0-36.0); Mean Corpuscular Volume 90.7 fL (80.0-100.0); Monocytes # (auto) 0.6 10 ^3/uL (0-1.3); Monocytes % (auto) 7.6 % (0.0-12.0); Neutrophils # (auto) 5.7 10 ^3/uL (1.6-8.6); Neutrophils % (auto) 73.4 % (37.0-80.0); Platelet Count (auto) 175 10^3/uL (140-450); Red Blood Cells 3.78 10^6/uL (4.5-5.90); Red Cell Distribution Width 15.5 % (11.8-14.3); White Blood Cell 7.7 10^3/uL (4.4-10.8)
[2020-12-27 11:02] LABS: Albumin 3.4 g/dL (3.4-5.0); Calcium 8.8 mg/dL (8.5-10.1); Potassium 4.3 mmol/L (3.5-5.1)
[2020-12-27 11:04] LABS: INR 1.11 (0.9-1.15); Partial Thromboplastin Time 29.8 sec (23.0-31.2)
[2020-12-27 11:07] LABS: BUN/Creatinine Ratio 21.1; Bilirubin, Total 0.6 mg/dL (0.2-1.0); Total Protein 7.1 g/dL (6.4-8.2)
[2020-12-27] MEDS ORDERED: HYDROcodone-ACET 5/325MG TAB PO PRN (14:15)
[2020-12-27] MEDS ORDERED: hydrALAZINE HCL 20 MG/ML VL IV PRN (14:15)
[2020-12-27] MEDS ORDERED: ONDANSETRON HCL 4 MG/2 ML VIAL IV PRN (14:15)
[2020-12-27] MEDS ORDERED: NITROGLYCERIN 0.4 MG SL TAB SL PRN (14:15)
[2020-12-27] MEDS ORDERED: ACETAMINOPHEN 500 MG TAB PO PRN (14:15)
[2020-12-27] MEDS ORDERED: MORPHINE SULF INJ 2 MG/ML SYRINGE 1ML IV PRN ×2 (14:15)
[2020-12-27] MEDS ORDERED: DEXTROSE (50%) 50ML SYRG IV PRN (14:15)
[2020-12-27 17:16] VITALS: BP 113/52
[2020-12-27] MEDS: ACCU-CHEK COMFORT CURVE STRIP VI SCH ×2 (17:21→21:39)
[2020-12-27] MEDS: FUROSEMIDE 20 MG/2 ML VIAL IV SCH (17:22)
[2020-12-27] MEDS: InsuLIN REG 1unit/0.01ml Soln (100units/ml) SC SCH ×2 (17:26→21:34)
[2020-12-27 18:05] VITALS: BP 113/52
[2020-12-27 18:20] LABS: Urine Bacteria FEW /hpf (None Seen); Urine Blood Negative /uL (Negative); Urine Specific Gravity 1.007 (1.001-1.035); Urine Sperm PRESENT /hpf (None Seen); Urine WBC <1 /hpf (0 - 3)
[2020-12-27] MEDS ORDERED: PNEUMOCOCCAL VACC POLYS 25 MCG/0.5 ML VIAL IM ONE (18:30)
[2020-12-27] MEDS: DOCUSATE SOD 100 MG CAP PO SCH (21:32)
[2020-12-27] MEDS: CARVEDILOL 3.125 MG TAB PO SCH (21:39)
[2020-12-27 22:57] VITALS: BP 110/69
[2020-12-28 05:15] VITALS: BP 114/59
[2020-12-28] MEDS: FUROSEMIDE 20 MG/2 ML VIAL IV SCH ×2 (05:35→18:07)
[2020-12-28] MEDS: ACCU-CHEK COMFORT CURVE STRIP VI SCH ×4 (05:55→21:21)
[2020-12-28] MEDS: InsuLIN REG 1unit/0.01ml Soln (100units/ml) SC SCH ×4 (05:59→21:42)
[2020-12-28 08:43] VITALS: BP 107/63
[2020-12-28] MEDS: RAMIPRIL 2.5 MG CAP PO SCH (09:22)
[2020-12-28] MEDS: DOCUSATE SOD 100 MG CAP PO SCH ×2 (09:23→21:21)
[2020-12-28] MEDS: FAMOTIDINE 20 MG TAB PO SCH (09:24)
[2020-12-28] MEDS: CARVEDILOL 3.125 MG TAB PO SCH ×2 (09:24→21:21)
[2020-12-28] MEDS ORDERED: PIO30T PO (09:58)
[2020-12-28] MEDS ORDERED: FERR28TA2 PO (09:58)
[2020-12-28] MEDS ORDERED: CHOL20004 PO (09:58)
[2020-12-28] MEDS ORDERED: METF-929 PO (09:58)
[2020-12-28 12:48] VITALS: BP 136/60
[2020-12-28] MEDS ORDERED: DOXY-340 PO (16:43)
[2020-12-28] MEDS ORDERED: FER325T PO (16:47)
[2020-12-28 16:51] VITALS: BP 95/53
[2020-12-28] MEDS ORDERED: ZINC50TA35 PO (16:51)
[2020-12-28] MEDS ORDERED: METF-371 PO (16:51)
[2020-12-28] MEDS ORDERED: METH4PAK3 PO (16:53)
[2020-12-28] MEDS ORDERED: PIOG1TAB51 PO (16:54)
[2020-12-28] MEDS ORDERED: OMEG1400 PO (16:57)
[2020-12-28 21:54] VITALS: BP 115/68
[2020-12-29 04:51] VITALS: BP 115/68
[2020-12-29] MEDS: ACCU-CHEK COMFORT CURVE STRIP VI SCH ×3 (05:46→17:00)
[2020-12-29] MEDS: FUROSEMIDE 20 MG/2 ML VIAL IV SCH ×2 (05:46→18:00)
[2020-12-29] MEDS: InsuLIN REG 1unit/0.01ml Soln (100units/ml) SC SCH ×3 (06:17→16:35)
[2020-12-29 06:32] LABS: Basophils # (auto) 0 10 ^3/uL (0-0.2); Basophils % (auto) 0.8 % (0.0-2.0); Eosinophils # (auto) 0.1 10 ^3/uL (0-0.8); Eosinophils % (auto) 1.8 % (0.0-7.0); Hematocrit 33.5 % (41.0-53.0); Hemoglobin 11.2 g/dL (13.5-17.5); Lymphocytes # (auto) 1.3 10 ^3/uL (0.4-5.4); Lymphocytes % (auto) 29.8 % (10.0-50.0); Mean Corpuscular Hemoglobin 30.5 pg (28.0-32.0); Mean Corpuscular Hgb Conc. 33.4 g/dL (32.0-36.0); Mean Corpuscular Volume 91.3 fL (80.0-100.0); Monocytes # (auto) 0.4 10 ^3/uL (0-1.3); Monocytes % (auto) 9.6 % (0.0-12.0); Neutrophils # (auto) 2.5 10 ^3/uL (1.6-8.6); Nucleated Red Blood Cells % 0.2 %; Platelet Count (auto) 143 10^3/uL (140-450); Red Blood Cells 3.67 10^6/uL (4.5-5.90); Red Cell Distribution Width 15.5 % (11.8-14.3); White Blood Cell 4.4 10^3/uL (4.4-10.8)
[2020-12-29 06:42] LABS: BUN/Creatinine Ratio 19.4; Calcium 8.3 mg/dL (8.5-10.1); Magnesium 2.4 mg/dL (1.6-2.6); Potassium 4.3 mmol/L (3.5-5.1)
[2020-12-29 08:33] VITALS: BP 105/56
[2020-12-29] MEDS: DOCUSATE SOD 100 MG CAP PO SCH (10:43)
[2020-12-29] MEDS: RAMIPRIL 2.5 MG CAP PO SCH (10:49)
[2020-12-29] MEDS: FAMOTIDINE 20 MG TAB PO SCH (10:50)
[2020-12-29] MEDS: CARVEDILOL 3.125 MG TAB PO SCH (10:50)
[2020-12-29 12:31] VITALS: BP 123/70
[2020-12-29 16:36] VITALS: BP 117/63
== END 2020-12-29 16:30 | disposition left against medical advice (07) | DRG 291 ==
LOC: EDBD 09:18 → ER 09:18 → TELE 14:09 → TELE-WESTW 17:05
PROVIDERS: ADMIT Nurse Practitioner Acute Care; ATTEND Internal Medicine
DX: I13.0 Hypertensive heart and chronic kidney disease with heart failure and stage 1 through stage 4 chronic kidney disease, or unspecified chronic kidney disease (principal); I50.43 Acute on chronic combined systolic (congestive) and diastolic (congestive) heart failure; J96.01 Acute respiratory failure with hypoxia; Z68.41 Body mass index [BMI] 40.0-44.9, adult; N17.9 Acute kidney failure, unspecified; J98.11 Atelectasis; N18.30 Chronic kidney disease, stage 3 unspecified; D64.9 Anemia, unspecified; E11.22 Type 2 diabetes mellitus with diabetic chronic kidney disease; Z53.29 Procedure and treatment not carried out because of patient's decision for other reasons; E66.01 Morbid (severe) obesity due to excess calories; I35.0 Nonrheumatic aortic (valve) stenosis; E78.5 Hyperlipidemia, unspecified; Z83.3 Family history of diabetes mellitus; Z86.16 Personal history of COVID-19; Z79.82 Long term (current) use of aspirin; Z79.84 Long term (current) use of oral hypoglycemic drugs; Z87.891 Personal history of nicotine dependence
CPT/HCPCS: 36415; 71045; 80048; 80053; 81001; 82962; 83036; 83735; 83880; 84484; 85025; 85610; 85730; 86141; 87426; 93005; 93306; 96374; 96375; 99291; G0378; J1815

== ENCOUNTER 2021-04-23 16:15 | Inpatient (IN) | payer OTHER, MEDICAID ==
[~2021-04-23] VITALS: Ht 167.6 cm; Wt 112.6 kg
[~2021-04-23 16:15] MED LIST changes: -ATEN-60 PO; -ATOR20TA PO; +CHOL20004 PO; -DOXY-111 PO; +FER325T PO; -FERR27TA2 PO; +METF-371 PO; -METH4PAK PO; +OMEG1400 PO; -PIO30T PO; +PIOG1TAB51 PO; -ZINC220C8 PO; +ZINC50TA35 PO
[2021-04-23] MEDS ORDERED: SODIUM CHLORIDE 0.9% 1,000 ML IV ONE (17:45)
[2021-04-23] MEDS ORDERED: ASPirin 81 mg TAB PO ONE (17:45)
[2021-04-23 18:33] LABS: Basophils # (auto) 0 10 ^3/uL (0-0.2); Eosinophils # (auto) 0 10 ^3/uL (0-0.8); Hemoglobin 8.3 g/dL (13.5-17.5); Monocytes # (auto) 0.6 10 ^3/uL (0-1.3); White Blood Cell 7.3 10^3/uL (4.4-10.8)
[2021-04-23 18:34] LABS: Basophils % (auto) 0.6 % (0.0-2.0); Eosinophils % (auto) 0.6 % (0.0-7.0); Hematocrit 25.3 % (41.0-53.0); Lymphocytes % (auto) 13.8 % (10.0-50.0); Mean Corpuscular Hemoglobin 26.4 pg (28.0-32.0); Mean Corpuscular Hgb Conc. 32.7 g/dL (32.0-36.0); Mean Corpuscular Volume 80.7 fL (80.0-100.0); Monocytes % (auto) 7.9 % (0.0-12.0); Neutrophils # (auto) 5.7 10 ^3/uL (1.6-8.6); Neutrophils % (auto) 77.1 % (37.0-80.0); Red Blood Cells 3.14 10^6/uL (4.5-5.90)
[2021-04-23 18:49] LABS: INR 1.17 (0.9-1.15); Partial Thromboplastin Time 25.4 sec (23.6-33.0)
[2021-04-23 18:53] LABS: Albumin 3.2 g/dL (3.4-5.0); BUN/Creatinine Ratio 20.1; Calcium 8.4 mg/dL (8.5-10.1); Magnesium 2.4 mg/dL (1.6-2.6); Potassium 4.9 mmol/L (3.5-5.1)
[2021-04-23 19:01] LABS: Bilirubin, Total 0.4 mg/dL (0.2-1.0); Total Protein 6.9 g/dL (6.4-8.2)
[2021-04-23] MEDS ORDERED: MIDAZOLAM HCL 5 MG/ML-1ML VIAL ONE (19:11)
[2021-04-23 19:14] VITALS: BP 157/91
[2021-04-23] MEDS ORDERED: MIDAZOLAM HCL 5 MG/ML-1ML VIAL IV ONE (19:30)
[2021-04-23] MEDS ORDERED: FUROSEMIDE 40 MG/4 ML VIAL IV ONE (19:45)
[2021-04-23 19:54] VITALS: BP 157/91
[2021-04-23 20:12] VITALS: BP 106/46
[2021-04-23 20:22] LABS: Urine Bacteria NONE SEEN /hpf (None Seen); Urine Blood Negative /uL (Negative); Urine Hyaline Cast FEW /lpf (0 - 2); Urine Specific Gravity 1.021 (1.001-1.035); Urine WBC 1 /hpf (0 - 3)
[2021-04-23] MEDS ORDERED: HEPARIN SODIUM (PORCINE) 5000 UNITS/ML 1ML VIAL IV ONE (23:30)
[2021-04-23] MEDS ORDERED: HEPARIN DRIP/D5W 100UNITS/ML 250 ML IV SCH (23:30)
[2021-04-24] MEDS ORDERED: NITROGLYCERIN 0.4 MG SL TAB SL PRN (03:45)
[2021-04-24] MEDS ORDERED: ACETAMINOPHEN 325 MG TAB PO PRN (03:45)
[2021-04-24] MEDS ORDERED: HYDROcodone-ACET 5/325MG TAB PO PRN (03:45)
[2021-04-24] MEDS ORDERED: DOCUSATE SOD 100 MG CAP PO PRN (03:45)
[2021-04-24] MEDS ORDERED: MORPHINE SULFATE INJECTION 2 MG/2 ML SYRG IV PRN (03:45)
[2021-04-24] MEDS ORDERED: DEXTROSE (50%) 50ML SYRG IV PRN (03:45)
[2021-04-24] MEDS ORDERED: ONDANSETRON HCL 4 MG/2 ML VIAL IV PRN (03:45)
[2021-04-24] MEDS ORDERED: ALBUMIN 25% 50 ML IV ONE (03:45)
[2021-04-24 05:01] LABS: Eosinophils # (auto) 0.1 10 ^3/uL (0-0.8); Hemoglobin 8.8 g/dL (13.5-17.5); Lymphocytes # (auto) 1.9 10 ^3/uL (0.4-5.4); Monocytes # (auto) 0.7 10 ^3/uL (0-1.3); Monocytes % (auto) 6.8 % (0.0-12.0); Neutrophils # (auto) 7.9 10 ^3/uL (1.6-8.6); White Blood Cell 10.7 10^3/uL (4.4-10.8)
[2021-04-24 05:05] LABS: Basophils # (auto) 0.1 10 ^3/uL (0-0.2); Basophils % (auto) 0.5 % (0.0-2.0); Eosinophils % (auto) 0.9 % (0.0-7.0); Hematocrit 27.7 % (41.0-53.0); Lymphocytes % (auto) 17.6 % (10.0-50.0); Mean Corpuscular Hgb Conc. 31.9 g/dL (32.0-36.0); Mean Corpuscular Volume 81.3 fL (80.0-100.0); Neutrophils % (auto) 74.2 % (37.0-80.0); Red Cell Distribution Width 16.8 % (11.8-14.3)
[2021-04-24 05:26] LABS: Potassium 4.3 mmol/L (3.5-5.1)
[2021-04-24 05:39] LABS: Albumin 3.2 g/dL (3.4-5.0); BUN/Creatinine Ratio 19.7; Bilirubin, Total 0.6 mg/dL (0.2-1.0); Calcium 8.6 mg/dL (8.5-10.1); Total Protein 7.6 g/dL (6.4-8.2)
[2021-04-24] MEDS: SODIUM CHLOR 0.9% PF (SALINE LOCK) 10ML VIAL/SYR IV SCH ×3 (06:00→22:12)
[2021-04-24] MEDS: InsuLIN REG 1unit/0.01ml Soln (100units/ml) SC SCH ×5 (07:00→22:28)
[2021-04-24] MEDS ORDERED: FUROSEMIDE 20 MG/2 ML VIAL IV ONE (07:15)
[2021-04-24] MEDS: ACCU-CHEK COMFORT CURVE STRIP VI SCH ×4 (07:41→22:14)
[2021-04-24 09:27] LABS: % Iron Saturation 4.6 % (20-55)
[2021-04-24] MEDS ORDERED: ASPirin 81 mg TAB PO SCH (10:00)
[2021-04-24] MEDS ORDERED: MULTIPLE VITAMIN TAB PO SCH (10:00)
[2021-04-24] MEDS ORDERED: FUROSEMIDE 40 MG/4 ML VIAL IV SCH (10:00)
[2021-04-24] MEDS ORDERED: ZINC SULFATE 220mg CAP or TAB PO SCH (10:00)
[2021-04-24] MEDS ORDERED: FAMOTIDINE (10MG/ML) 2ML VL IV SCH (10:00)
[2021-04-24] MEDS ORDERED: AZITHROMYCIN 500MG/ 250ML 250 ML IV SCH (10:00)
[2021-04-24] MEDS ORDERED: LIDOCAINE 2%HCL (LOCAL ANESTH.) INJ 20ML MDV ONE (11:31)
[2021-04-24] MEDS ORDERED: VERAPAMIL 2.5MG/ML INJ 2ML VIAL IV ONE (11:41)
[2021-04-24] MEDS ORDERED: ANGIOMAX 250 MG VIAL IV ONE (11:41)
[2021-04-24] MEDS ORDERED: HEPARIN SODIUM (PORCINE) 5000 UNITS/ML 1ML VIAL ONE ×2 (11:41→12:23)
[2021-04-24] MEDS ORDERED: MIDAZOLAM HCL 2MG/2ML 2ml VIAL (1mg/ml) ONE (11:42)
[2021-04-24] MEDS ORDERED: SODIUM CHL 0.9% 0 ML ONE (11:42)
[2021-04-24] MEDS ORDERED: fentaNYL CITRATE 100 MCG/2 ML VL ONE (11:42)
[2021-04-24] MEDS: ASCORBIC ACID 500 MG TAB PO SCH ×2 (14:10→22:13)
[2021-04-24 22:00] VITALS: BP 156/80
[2021-04-24] MEDS ORDERED: ATORVASTATIN 20 MG TAB PO SCH (22:00)
[2021-04-24 22:55] VITALS: BP 156/80
[2021-04-25 10:46] LABS: Folate (Folic Acid) 19.17 ng/mL (5.38-24)
== END 2021-04-24 22:45 | disposition short-term general hospital (02) | DRG 280 ==
LOC: EDUNIT# 16:15 → ER 16:15 → EDBD 16:15 → TELE 04-24 03:43 → TELE-WESTW 04-24 19:55
PROVIDERS: ADMIT Nurse Practitioner Family; ATTEND Internal Medicine
PROC: 4A023N7 Measurement of Cardiac Sampling and Pressure, Left Heart, Percutaneous Approach (ICD-10-PCS; principal; 2021-04-24)
PROC: B211YZZ Fluoroscopy of Multiple Coronary Arteries using Other Contrast (ICD-10-PCS; 2021-04-24)
DX: I21.4 Non-ST elevation (NSTEMI) myocardial infarction (principal); J96.00 Acute respiratory failure, unspecified whether with hypoxia or hypercapnia; I50.23 Acute on chronic systolic (congestive) heart failure; I13.0 Hypertensive heart and chronic kidney disease with heart failure and stage 1 through stage 4 chronic kidney disease, or unspecified chronic kidney disease; Z68.41 Body mass index [BMI] 40.0-44.9, adult; I42.9 Cardiomyopathy, unspecified; I25.110 Atherosclerotic heart disease of native coronary artery with unstable angina pectoris; D64.9 Anemia, unspecified; E11.22 Type 2 diabetes mellitus with diabetic chronic kidney disease; E66.01 Morbid (severe) obesity due to excess calories; N18.9 Chronic kidney disease, unspecified; I35.0 Nonrheumatic aortic (valve) stenosis; R79.1 Abnormal coagulation profile; Z83.3 Family history of diabetes mellitus
CPT/HCPCS: 36415; 36600; 71046; 71250; 80053; 80061; 81001; 82607; 82746; 82805; 82962; 83036; 83540; 83550; 83735; 83880; 84443; 84484; 85025; 85379; 85610; 85730; 87426; 93005; 93306; 93458; 94660; 96365; 96366; 96368; 96375; 96376; 99152; 99153; G0378; J1815; J2250; J3490